=== PATIENT | female | born 1935 | race Caucasian/White ===

== ENCOUNTER 2016-04-16 17:19 | Inpatient (IN) | payer OTHER, MEDICARE ==
[~2016-04-16] VITALS: Ht 152.4 cm; Wt 58.8 kg
[~2016-04-16 17:19] MED LIST: AUGMENTIN875 MG PO; Ascorbic Acid,Ester- PO; Ceftin PO; FOLIC ACID1 MG PO; GLIPIZIDE5 MG PO; GLUCOPHAGE1000 MG PO; Glucotrol PO; LOSARTAN POTASS50 MG PO; METHOTREXATE2.5 MG PO; PRAVACHOL40 MG PO; ZOLOFT25 MG PO
[2016-04-16 18:17] LABS: EOSINOPHIL (%) 0.6 % (0-5); EOSINOPHIL COUNT 0.1 K/uL (0-0.3); HEMATOCRIT 34.3 % (36.0-46.0); IMMATURE GRANULOCYTE (%) 0.3 % (0.0-0.7); IMMATURE GRANULOCYTE COUNT 0.3 K/uL; MCH 27.1 PG (29.0-34.0); MCHC 32.7 G/DL (30.0-36.0); MCV 82.9 FL (83-99); MEAN PLAT.VOLUME 10.7 uM^3 (9.5-12.4); MONOCYTE (%) 5.3 % (3-12); MONOCYTE COUNT 0.5 K/uL (0-0.8); NEUTROPHIL (%) 83.1 % (45-76); NEUTROPHIL COUNT 8.1 K/uL (1.8-6.4); PLATELET COUNT 332 K/uL (156-360); RBC DIS.WIDTH-SD 44.2 % (39-53); RED BLOOD COUNT 4.14 M/uL (3.80-5.20); WHITE BLOOD COUNT 9.8 K/uL (4.1-10.2)
[2016-04-16 18:27] LABS: INTER. NORMALIZED RATIO 1.2; PROTHROMBIN TIME 12.1 (9.2-11.2); PTT 28.2 (25-32)
[2016-04-16 18:35] LABS: CHLORIDE 104 mEq/L (99-109); POTASSIUM 4.1 mEq/L (3.7-5.4); SODIUM 138 mEq/L (136-147)
[2016-04-16 18:36] LABS: MAGNESIUM 1.7 mg/dL (1.3-2.7); TROP-I INTERPRETATION NEGATIVE; TROPONIN-I 0.22 ng/mL (0.0-0.30)
[2016-04-16 18:37] LABS: GLUCOSE 178 mg/dL (70-99)
[2016-04-16 18:39] LABS: ANION GAP 13 MEQ/L (2-14)
[2016-04-16 18:41] LABS: GFR ESTIMATE (CALCULATED) > 59 mL/min/
[2016-04-16 18:42] LABS: UREA NITROGEN (BUN) 12 mg/dL (9-23)
[2016-04-16 21:05] LABS: ADD MIUA? YES; BILIRUBIN SMALL; BLOOD NEGATIVE; COLOR DK YELLOW ((YELLOW)); GLUCOSE (STRIP) NEGATIVE; KETONES TRACE; LEUKOCYTES TRACE; NITRITE NEGATIVE; PROTEIN (STRIP) 30; SPECIFIC GRAVITY 1.022 (1.000-1.030)
[2016-04-16 21:28] LABS: BACTERIA 1+; CASTS PRESENT /LPF; CRYSTALS NONE SEEN; EPITHELIAL CELLS RARE; HYALINE CASTS 0-5 /LPF; MUCUS 1+; RED BLOOD CELLS 0-5 /HPF (0-5); UCUL ADDED? NO; WHITE BLOOD CELLS 0-5 /HPF (0-5)
[2016-04-16 21:29] LABS: FINE GRANULAR CASTS 0-5 /LPF
[2016-04-16] MEDS ORDERED: TYLENOL REGULA325 MG PO (21:54)
[2016-04-16] MEDS ORDERED: FUROSEMIDE20 MG PO (21:54)
[2016-04-16] MEDS ORDERED: LO-DOSE ASPIRIN81 M2 PO (21:55)
[2016-04-17] VITALS (7 sets, daily range): BP systolic 118–176; BP diastolic 69–84
[2016-04-17 00:31] LABS: TROP-I INTERPRETATION NEGATIVE; TROPONIN-I 0.18 ng/mL (0.0-0.30)
[2016-04-17 01:24] LABS: D-DIMER ELISA 2.02 mg/L FEU (< 0.57)
[2016-04-17 07:50] LABS: TROP-I INTERPRETATION NEGATIVE; TROPONIN-I 0.15 ng/mL (0.0-0.30)
[2016-04-18 03:44] VITALS: BP 137/74
[2016-04-18 06:47] LABS: HEMATOCRIT 32.4 % (36.0-46.0); MCH 27.5 PG (29.0-34.0); MCHC 32.7 G/DL (30.0-36.0); MCV 83.9 FL (83-99); MEAN PLAT.VOLUME 11.3 uM^3 (9.5-12.4); PLATELET COUNT 344 K/uL (156-360); RBC DIS.WIDTH-CV 15.5 % (11.8-14.6); RBC DIS.WIDTH-SD 47.1 % (39-53); RED BLOOD COUNT 3.86 M/uL (3.80-5.20); WHITE BLOOD COUNT 7.5 K/uL (4.1-10.2)
[2016-04-18 06:50] VITALS: BP 139/77
[2016-04-18 07:15] LABS: ANION GAP 12 MEQ/L (2-14); CHLORIDE 96 MEQ/L (99-109); GFR ESTIMATE (CALCULATED) 46 mL/min/; SAMPLE HEMOLYSIS CHECK 0; SAMPLE ICTERIC CHECK 0; SAMPLE LIPEMIA CHECK 0; SODIUM 136 MEQ/L (136-147); UREA NITROGEN (BUN) 14 mg/dL (9-23)
[2016-04-18 07:24] LABS: GLUCOSE 100 mg/dL (70-99); POTASSIUM 3.1 MEQ/L (3.7-5.4)
[2016-04-18 08:31] LABS: TROP-I INTERPRETATION NEGATIVE; TROPONIN-I 0.14 ng/mL (0.0-0.30)
[2016-04-18 14:45] VITALS: BP 119/63
[2016-04-18 23:27] VITALS: BP 139/65
[2016-04-19 07:40] LABS: ANION GAP 10 MEQ/L (2-14); CHLORIDE 97 MEQ/L (99-109); GFR ESTIMATE (CALCULATED) 57 mL/min/; GLUCOSE 101 mg/dL (70-99); SAMPLE HEMOLYSIS CHECK 0; SAMPLE ICTERIC CHECK 0; SAMPLE LIPEMIA CHECK 0; SODIUM 137 MEQ/L (136-147); UREA NITROGEN (BUN) 15 mg/dL (9-23)
[2016-04-19 07:51] LABS: POTASSIUM 4.1 MEQ/L (3.7-5.4)
[2016-04-19 07:55] VITALS: BP 133/67
[2016-04-19 16:05] VITALS: BP 118/65
[2016-04-19 23:26] VITALS: BP 134/78
[2016-04-20 07:51] LABS: EOSINOPHIL (%) 1.2 % (0-5); EOSINOPHIL COUNT 0.1 K/uL (0-0.3); HEMATOCRIT 36.9 % (36.0-46.0); IMMATURE GRANULOCYTE (%) 0.3 % (0.0-0.7); MCH 26.4 PG (29.0-34.0); MCV 82.6 FL (83-99); MEAN PLAT.VOLUME 11.3 uM^3 (9.5-12.4); MONOCYTE (%) 11.8 % (3-12); MONOCYTE COUNT 1.4 K/uL (0-0.8); NEUTROPHIL (%) 69.2 % (45-76); PLATELET COUNT 411 K/uL (156-360); RBC DIS.WIDTH-CV 15.4 % (11.8-14.6); RBC DIS.WIDTH-SD 46.2 % (39-53); RED BLOOD COUNT 4.47 M/uL (3.80-5.20)
[2016-04-20 07:53] LABS: ANION GAP 10 MEQ/L (2-14); CHLORIDE 94 MEQ/L (99-109); GFR ESTIMATE (CALCULATED) 57 mL/min/; GLUCOSE 136 mg/dL (70-99); POTASSIUM 3.9 MEQ/L (3.7-5.4); SAMPLE HEMOLYSIS CHECK 0; SAMPLE ICTERIC CHECK 0; SAMPLE LIPEMIA CHECK 0; SODIUM 133 MEQ/L (136-147); UREA NITROGEN (BUN) 17 mg/dL (9-23)
[2016-04-20 08:00] VITALS: BP 133/82
[2016-04-20 08:03] LABS: WHITE BLOOD COUNT 11.6 K/uL (4.1-10.2)
[2016-04-20] MEDS ORDERED: FUROSEMIDE40 MG PO (14:28)
[2016-04-20] MEDS ORDERED: FAMOTIDINE20 MG PO (14:28)
[2016-04-20] MEDS ORDERED: DOCUSATE SODIU100 MG PO (14:28)
[2016-04-20] MEDS ORDERED: K-DUR20 MEQ PO (14:28)
[2016-04-20] MEDS ORDERED: METOPROLOL SUCC25 MG PO (14:28)
== END 2016-04-20 16:07 | DRG 291 ==
LOC: EME 17:19 → EDOF 23:01 → 2EAST 23:01
PROVIDERS: Emergency Medicine; Hospitalist; Internal Medicine; Internal Medicine Cardiovascular Disease; Physician Assistant Medical
DX: I11.0 Hypertensive heart disease with heart failure (principal); I50.23 Acute on chronic systolic (congestive) heart failure; G93.41 Metabolic encephalopathy; J96.01 Acute respiratory failure with hypoxia; M06.9 Rheumatoid arthritis, unspecified; E11.65 Type 2 diabetes mellitus with hyperglycemia; G89.29 Other chronic pain; K21.9 Gastro-esophageal reflux disease without esophagitis; F32.9 Major depressive disorder, single episode, unspecified; F03.90 Unspecified dementia, unspecified severity, without behavioral disturbance, psychotic disturbance, mood disturbance, and anxiety; E87.6 Hypokalemia; Z79.82 Long term (current) use of aspirin; Z91.041 Radiographic dye allergy status; Z91.81 History of falling
CPT/HCPCS: 70450; 70551; 71010; 78582; 80048; 81003; 82948; 83735; 83880; 84484; 85025; 85027; 85379; 85610; 85730; 93005; 93306; 94799; 97530 GP; 99281; 99285; A9539; A9540; G0008; J1644; J1650; J1815; J1940; J2405; J7030; J8610

== ENCOUNTER 2016-11-01 05:58 | Emergency (ER) | payer OTHER, MEDICARE ==
[~2016-11-01] VITALS: Ht 167.6 cm; Wt 59.9 kg
[~2016-11-01 05:58] MED LIST changes: +DOCUSATE SODIU100 MG PO; +FAMOTIDINE20 MG PO; +FUROSEMIDE20 MG PO; +FUROSEMIDE40 MG PO; +K-DUR20 MEQ PO; +LO-DOSE ASPIRIN81 M2 PO; +METOPROLOL SUCC25 MG PO; +TYLENOL REGULA325 MG PO
[2016-11-01 06:44] LABS: HEMATOCRIT 37.1 % (36.0-46.0); MCH 27.7 PG (29.0-34.0); MCHC 32.1 G/DL (30.0-36.0); MCV 86.5 FL (83-99); PLATELET COUNT 273 K/uL (156-360); RBC DIS.WIDTH-CV 16.1 % (11.8-14.6); RBC DIS.WIDTH-SD 51.3 % (39-53); RED BLOOD COUNT 4.29 M/uL (3.80-5.20); WHITE BLOOD COUNT 8.7 K/uL (4.1-10.2)
[2016-11-01 07:02] LABS: ANION GAP 10 MEQ/L (2-14); CHLORIDE 105 MEQ/L (99-109); POTASSIUM 4.2 MEQ/L (3.7-5.4); SAMPLE HEMOLYSIS CHECK 0; SAMPLE ICTERIC CHECK 0; SAMPLE LIPEMIA CHECK 0; SODIUM 137 MEQ/L (136-147)
[2016-11-01 07:08] LABS: GFR ESTIMATE (CALCULATED) > 59 mL/min/; GLUCOSE 158 mg/dL (70-99); UREA NITROGEN (BUN) 18 mg/dL (9-23)
[2016-11-01 09:47] LABS: ADD MIUA? YES; BILIRUBIN NEGATIVE; BLOOD MODERATE; COLOR YELLOW ((YELLOW)); GLUCOSE (STRIP) NEGATIVE; KETONES NEGATIVE; LEUKOCYTES TRACE; NITRITE NEGATIVE; PROTEIN (STRIP) 100; SPECIFIC GRAVITY 1.019 (1.000-1.030); UROBILINOGEN 0.2 MG/DL (0.2-1.0)
[2016-11-01 10:14] LABS: BACTERIA RARE /HPF; EPITHELIAL CELLS RARE /HPF; GRANULAR CASTS 0-5 /LPF; MUCUS TRACE /LPF; UCUL ADDED? NO; WHITE BLOOD CELLS 0-5 /HPF (0-5)
[2016-11-01 12:17] VITALS: BP 135/93
== END 2016-11-01 12:17 | disposition home or self-care (01) ==
LOC: EME → EDBD 05:58 → EME 12:17
PROVIDERS: Emergency Medicine
PROC: 0HQ0XZZ Repair Scalp Skin, External Approach (ICD-10-PCS; principal; 2016-11-01)
DX: S01.01XA Laceration without foreign body of scalp, initial encounter (principal); S19.9XXA Unspecified injury of neck, initial encounter; R10.2 Pelvic and perineal pain; W01.190A Fall on same level from slipping, tripping and stumbling with subsequent striking against furniture, initial encounter; Y93.01 Activity, walking, marching and hiking; F03.90 Unspecified dementia, unspecified severity, without behavioral disturbance, psychotic disturbance, mood disturbance, and anxiety; E11.9 Type 2 diabetes mellitus without complications; I10 Essential (primary) hypertension; K21.9 Gastro-esophageal reflux disease without esophagitis; Z79.82 Long term (current) use of aspirin; Z79.84 Long term (current) use of oral hypoglycemic drugs; Z90.49 Acquired absence of other specified parts of digestive tract
CPT/HCPCS: 70450; 71020; 72125; 72170; 80048; 81003; 85027; 86900; 86901; 99281; 99285; J7030

== ENCOUNTER 2016-11-27 00:12 | Emergency (ER) | payer OTHER, MEDICARE ==
[~2016-11-27] VITALS: Ht 152.4 cm; Wt 55.8 kg
[2016-11-27 01:07] LABS: CHLORIDE 107 mEq/L (99-109); POTASSIUM 4.3 mEq/L (3.7-5.4); SODIUM 143 mEq/L (136-147)
[2016-11-27 01:10] LABS: GLUCOSE 153 mg/dL (70-99)
[2016-11-27 01:11] LABS: ANION GAP 15 MEQ/L (2-14); TOTAL BILIRUBIN 2.6 mg/dL (0.0-1.0)
[2016-11-27 01:13] LABS: ALKALINE PHOSPHATASE 94 IU/L (3-129); GFR ESTIMATE (CALCULATED) 38 mL/min/
[2016-11-27 01:14] LABS: UREA NITROGEN (BUN) 31 mg/dL (9-23)
[2016-11-27 01:15] LABS: HEMATOCRIT 37.8 % (36.0-46.0); MEAN PLAT.VOLUME 11.4 uM^3 (9.5-12.4); PLATELET COUNT 263 K/uL (156-360); RBC DIS.WIDTH-SD 59.3 % (39-53); RED BLOOD COUNT 4.17 M/uL (3.80-5.20); WHITE BLOOD COUNT 13.3 K/uL (4.1-10.2)
[2016-11-27 01:16] LABS: MCV 90.6 FL (83-99)
[2016-11-27 01:17] LABS: LIPASE 9 U/L (1.0-51.0)
[2016-11-27 01:34] LABS: ADD MIUA? YES; BILIRUBIN NEGATIVE; BLOOD NEGATIVE; COLOR AMBER ((YELLOW)); GLUCOSE (STRIP) 50; KETONES NEGATIVE; LEUKOCYTES MODERATE; NITRITE NEGATIVE; PROTEIN (STRIP) 100; SPECIFIC GRAVITY 1.021 (1.000-1.030)
[2016-11-27 02:26] LABS: RED BLOOD CELLS NONE SEEN /HPF (0-5); WHITE BLOOD CELLS TNTC /HPF (0-5)
[2016-11-27 02:27] LABS: BACTERIA 2+ /HPF; EPITHELIAL CELLS 1+ /HPF; MUCUS 2+ /LPF; UCUL ADDED? YES
[2016-11-27 02:28] LABS: CASTS PRESENT /LPF; HYALINE CASTS 0-5 /LPF
[2016-11-27 02:31] LABS: AMORPHOUS URATES CRYSTALS 2+; CRYSTALS PRESENT
[2016-11-27] MEDS ORDERED: ACETAMINOPHEN650 M4 PR (03:46)
[2016-11-27] MEDS ORDERED: ALPRAZOLAM0.25 M2 PO (03:47)
[2016-11-27] MEDS ORDERED: FOLIC ACID0.4 MG PO (03:48)
[2016-11-27] MEDS ORDERED: HALOPERIDOL2 MG/1 ML PO (03:52)
[2016-11-27] MEDS ORDERED: ANASPAZ0.125 MG PO (03:53)
[2016-11-27] MEDS ORDERED: LORAZEPAM0.5 MG PO (03:56)
[2016-11-27] MEDS ORDERED: PROCHLORPERAZIN10 MG PO (03:58)
[2016-11-27] MEDS ORDERED: MORPHINE S10 MG/5 ML PO (04:00)
[2016-11-27] MEDS ORDERED: CEFPODOXIME PR100 MG PO (04:33)
[2016-11-27 10:05] VITALS: BP 112/65
== END 2016-11-27 10:07 | disposition home or self-care (01) ==
LOC: EME → EDBD 00:12 → EME 10:07
PROVIDERS: Emergency Medicine
DX: N30.90 Cystitis, unspecified without hematuria (principal); N17.9 Acute kidney failure, unspecified; I11.0 Hypertensive heart disease with heart failure; I50.9 Heart failure, unspecified; J90 Pleural effusion, not elsewhere classified; E87.2 Acidosis; W06.XXXA Fall from bed, initial encounter; E11.9 Type 2 diabetes mellitus without complications; F03.90 Unspecified dementia, unspecified severity, without behavioral disturbance, psychotic disturbance, mood disturbance, and anxiety; K21.9 Gastro-esophageal reflux disease without esophagitis; Z66 Do not resuscitate; Z79.84 Long term (current) use of oral hypoglycemic drugs
CPT/HCPCS: 70450; 71010; 72125; 72170; 80053; 81003; 83605; 83690; 85027; 87040; 87077; 87086; 87186; 93005; 99281; 99285; J0696; J7050